=== PATIENT | male | born 1980 | race Caucasian/White ===

== ENCOUNTER 2018-08-19 02:52 | Emergency (ER) | payer MEDICAID, OTHER ==
[2018-08-19] MEDS: TETRACAINE 0.5% 4 ML OPH BOTH EYES (04:58)
[2018-08-19] MEDS: FLUORESCEIN STRIP BOTH EYES (04:58)
[2018-08-19] MEDS: ERYTHROMYCIN 1 GM OPH OINT BOTH EYES (04:58)
[2018-08-19] MEDS: OXYCODONE/ACETAMINOPHEN (5/325) TAB PO (04:59)
== END 2018-08-19 05:44 | disposition home or self-care (01) ==
LOC: FTE 02:52
DX: T26.41XA Burn of right eye and adnexa, part unspecified, initial encounter (principal); T26.42XA Burn of left eye and adnexa, part unspecified, initial encounter; F17.210 Nicotine dependence, cigarettes, uncomplicated; W89.0XXA Exposure to welding light (arc), initial encounter; X03.0XXA Exposure to flames in controlled fire, not in building or structure, initial encounter; Y92.9 Unspecified place or not applicable
CPT/HCPCS: 99283; Z7502